=== PATIENT | male | born 1950 | race Caucasian/White ===

== ENCOUNTER 2024-05-07 06:27 | Day surgery (SDC) | payer OTHER ==
[2024-05-02 14:40] VITALS: BMI 30.4
[2024-05-07] MEDS ORDERED: OFLOXACIN 0.3% OPHTHALMIC SOLUTION 5 ML BOTTLE ONE (06:44)
[2024-05-07] MEDS ORDERED: CYCLOPENTOLATE HCL 1% OPHTH SOLN 2 ML BOTTLE ONE (06:44)
[2024-05-07] MEDS ORDERED: KETOROLAC TROMETHAMINE 0.5% EYE DROP 1 DROP DROPS ONE (06:44)
[2024-05-07] MEDS ORDERED: PHENYLEPHRINE 2.5% OPTHALMIC DROP 2ML BOTTLE ONE (06:44)
[2024-05-07] MEDS ORDERED: TROPICAMIDE 1% 3 ML EYE DROPS ONE (06:44)
[2024-05-07] MEDS: TROPICAMIDE 1% OPHTH SOLN 15 ML BOTTLE OD SCH (06:50)
[2024-05-07] MEDS: OFLOXACIN 0.3% OPHTHALMIC SOLUTION 5 ML BOTTLE OD SCH (06:50)
[2024-05-07] MEDS: PHENYLEPHRINE 2.5% OPHTH SOLN 15 ML BOTTLE OD SCH (06:50)
[2024-05-07] MEDS: KETOROLAC TROMETHAMINE 0.5% EYE DROP 1 DROP DROPS OD SCH (06:50)
[2024-05-07] MEDS: CYCLOPENTOLATE HCL 1% OPHTH SOLN 2 ML BOTTLE OD SCH (06:50)
[2024-05-07 06:51] VITALS: RESP 18
[2024-05-07] MEDS ORDERED: BACITRACIN/POLYMYXIN OPH OINT 3.5 GM TUBE ONE (07:14)
[2024-05-07] MEDS ORDERED: BETAXOLOL HCL 0.25% OPHTHALMIC 10 ML DROPSBTL ONE (07:15)
[2024-05-07] MEDS ORDERED: POVIDONE-IODINE 5% OPHTHALMIC PREP 30 ML SOLUTION ONE (07:16)
[2024-05-07] MEDS ORDERED: EPI-SHUGARCAINE (EPINEPHRINE 0.025% & LIDOCAINE-PF 0.75%) 4ML ONE (07:16)
[2024-05-07] MEDS ORDERED: TETRACAINE 0.5% OPHTH SOLN 2 ML BOTTLE ONE (07:16)
[2024-05-07] MEDS ORDERED: BSS (NA/CA/MG/K) BALANCED SALT SOLUTION OPHTH SOLN 15 ML BOTTLE ONE (07:17)
[2024-05-07] MEDS ORDERED: NEO/POLYMYX B SULF/DEXAMETH OPHTHALMIC 5ML BOTTLE ONE (07:17)
[2024-05-07] MEDS ORDERED: EPINEPHrine/PF 1 MG/1 ML (1:1,000) AMPULE ONE (07:18)
[2024-05-07] MEDS ORDERED: MIDAZOLAM HCL 2 MG/2 ML SINGLE DOSE VIAL ONE (07:34)
[2024-05-07] MEDS ORDERED: ACETAMINOPHEN 325 MG TABLET (FP) PO PRN (08:20)
[2024-05-07 08:56] VITALS: BP 123/71; PULSE 65; TEMP 97.7
== END 2024-05-07 09:00 | disposition home or self-care (01) ==
LOC: FASU 06:27
PROVIDERS: ATTEND Ophthalmology
PROC: 08RJ3JZ Replacement of Right Lens with Synthetic Substitute, Percutaneous Approach (ICD-10-PCS; principal; 2024-05-07 08:01)
DX: H25.11 Age-related nuclear cataract, right eye (principal)
CPT/HCPCS: 66984; V2632